=== PATIENT | female | born 1945 | race Hispanic/Latino ===

== ENCOUNTER 2018-03-05 17:50 | Emergency (ER) | payer OTHER ==
[~2018-03-05] VITALS: Ht 162.6 cm; Wt 73.7 kg
[~2018-03-05 17:50] MED LIST: ASPIR 8181 M1 PO; CIPROFLOXACIN500 M1 PO; FIORICET 50-301 EACH PO; GLUCOPHAGE850 MG PO; LEVOTHYROXINE100 MCG PO; LISINOPRIL20 MG PO; LOPRESSOR25 MG PO; METFORMIN HCL1000 MG PO; METRONIDAZOLE500 MG PO; NAPROXEN500 MG PO; PAXIL10 MG PO; PREDNISONE20 MG PO; SIMVASTATIN20 MG PO
[2018-03-05 18:40] LABS: HEMATOCRIT 38.5 % (36.0-46.0); HEMOGLOBIN 12.3 G/DL (11.9-15.5); MCH 28.8 PG (29.0-34.0); MCHC 31.9 G/DL (30.0-36.0); MCV 90.2 FL (83-99); RBC DIS.WIDTH-CV 14.2 % (11.8-14.6); RBC DIS.WIDTH-SD 46.5 % (39-53); RED BLOOD COUNT 4.27 M/uL (3.80-5.20); WHITE BLOOD COUNT 13.4 K/uL (4.1-10.2)
[2018-03-05 18:48] LABS: ALBUMIN 3.9 g/dL (3.2-4.8); CHLORIDE 105 mEq/L (99-109); POTASSIUM 4.2 mEq/L (3.7-5.4); SODIUM 142 mEq/L (136-147)
[2018-03-05 18:50] LABS: GLUCOSE 172 mg/dL (70-99); TOTAL PROTEIN 7.7 g/dL (6.4-8.3)
[2018-03-05 18:52] LABS: TOTAL BILIRUBIN 0.6 mg/dL (0.0-1.0)
[2018-03-05 18:54] LABS: ALKALINE PHOSPHATASE 60 IU/L (3-129); GFR ESTIMATE (CALCULATED) 58 mL/min/
[2018-03-05 18:55] LABS: UREA NITROGEN (BUN) 21 mg/dL (9-23)
[2018-03-05 18:56] LABS: AST (GOT) 15 IU/L (2-34)
[2018-03-05 18:57] LABS: ALT (GPT) 14 IU/L (3-49); LIPASE 39 U/L (1.0-51.0)
[2018-03-05 19:15] LABS: PLATELET COUNT 165 K/uL (156-360)
[2018-03-05 20:27] LABS: APPEARANCE CLEAR ((CLEAR)); BILIRUBIN NEGATIVE; BLOOD NEGATIVE; COLOR STRAW ((YELLOW)); GLUCOSE (STRIP) NEGATIVE; KETONES NEGATIVE; LEUKOCYTES NEGATIVE; NITRITE NEGATIVE; PROTEIN (STRIP) 30; SPECIFIC GRAVITY 1.015 (1.000-1.030); UCUL ADDED? NO; UROBILINOGEN 0.2 MG/DL (0.2-1.0)
[2018-03-05] MEDS ORDERED: OMEPRAZOLE40 M1 PO (21:12)
[2018-03-05] MEDS ORDERED: LISINOPRIL40 MG PO (21:13)
[2018-03-05] MEDS ORDERED: METFORMIN HCL1000 MG PO (21:13)
[2018-03-05] MEDS ORDERED: ERGOCALCIF50000 UNIT PO (21:14)
[2018-03-05 22:25] VITALS: BP 121/101
== END 2018-03-05 22:20 | disposition home or self-care (01) ==
LOC: EME 17:50
PROVIDERS: Emergency Medicine
DX: R10.9 Unspecified abdominal pain (principal); C79.9 Secondary malignant neoplasm of unspecified site; E11.9 Type 2 diabetes mellitus without complications; I10 Essential (primary) hypertension; E07.9 Disorder of thyroid, unspecified; F32.9 Major depressive disorder, single episode, unspecified; Z79.84 Long term (current) use of oral hypoglycemic drugs
CPT/HCPCS: 74177; 80053; 81003; 82948; 83690; 85027; 93005; 99281; 99285